=== PATIENT | female | born 1940 | race Caucasian/White ===

== ENCOUNTER 2017-12-24 10:24 | Observation (INO) | payer MEDICARE, OTHER ==
[~2017-12-24] VITALS: Ht 160 cm; Wt 83.4 kg
[2017-12-24] VITALS (12 sets, daily range): BP systolic 133–174; BP diastolic 64–87; PULSE 61–87; RESP 16–20; TEMP 96.4–97.3; O2SAT 95–99
[~2017-12-24 10:24] MED LIST: ACYC-1 PO; ALLE24TA PO; BACT800T5 PO; CLON.1 OR; ENAL20TA PO; ESTR0.1D3 TD; FLON0.053; HYDR12.56 PO; LEVO50TA51 PO; METO50TA11 PO; NORV5TAB PO; PACE100T2 PO; PRAZ1 PO; SIMV40 PO; WARF3TAB PO
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
[2017-12-24] MEDS ORDERED: SODIUM CHLORIDE 0.9% FLUSH 10 ML FLUSH IVF PRN (11:15)
[2017-12-24 11:19] LABS: AUTOMATED NEUTROPHIL # 4.1 TH/MM3 (1.8-7.7); BASOPHIL # 0.2 TH/MM3 (0-0.2); BASOPHIL % 3.6 % (0.0-2.0); EOSINOPHIL # 0.2 TH/MM3 (0-0.4); EOSINOPHIL % 2.6 % (0.0-4.0); HEMATOCRIT 38.6 % (35.0-46.0); HEMOGLOBIN 13.2 GM/DL (11.6-15.3); LYMPH % 21.8 % (9.0-44.0); LYMPHOCYTE # 1.4 TH/MM3 (1.0-4.8); MEAN CELL VOLUME 91.1 FL (80.0-100.0); MEAN CORPUSCULAR HEMOGLOBIN 31.1 PG (27.0-34.0); MEAN CORPUSCULAR HGB CONC 34.1 % (32.0-36.0); MEAN PLATELET VOLUME 8.8 FL (7.0-11.0); MONO % 7.7 % (0.0-8.0); MONOCYTE # 0.5 TH/MM3 (0-0.9); NEUT % 64.3 % (16.0-70.0); PLATELET COUNT 297 TH/MM3 (150-450); RED BLOOD COUNT 4.24 MIL/MM3 (4.00-5.30); RED CELL DISTRIBUTION WIDTH 14.3 % (11.6-17.2); WHITE BLOOD COUNT 6.4 TH/MM3 (4.0-11.0)
--- NOTE | 2017-12-24 11:28 | RADRPT ---
EXAM DATE/TIME: 12/24/2017 11:11 [place] COMPARISON: No previous studies available for comparison. INDICATIONS : Syncope, dizziness, irregular heart rate MEDICAL HISTORY : Hypertension. a fib SURGICAL HISTORY : None. ENCOUNTER: Initial ACUITY: 1 day PAIN SCORE: 0/10 LOCATION: Bilateral chest FINDINGS: Cardiomegaly. No consolidation or effusion. Mild interstitial prominence. Osseous structures are inta ct. CONCLUSION: Mild interstitial prominence. Javi Ferris MD on December 24, 2017 at 11:25 Board Certified Radiologist. This report was verified electronically.
[2017-12-24 11:32] LABS: CHLORIDE 103 MEQ/L (98-107); SODIUM (NA) 137 MEQ/L (136-145)
[2017-12-24 11:35] LABS: ALBUMIN 3.5 GM/DL (3.4-5.0); BICARBONATE 28.6 MEQ/L (21.0-32.0); CALCIUM 9.5 MG/DL (8.5-10.1)
[2017-12-24 11:36] LABS: BLOOD UREA NITROGEN 19 MG/DL (7-18); GLUCOSE,RANDOM 123 MG/DL (74-106); INTERNATIONAL NORMALIZED RATIO 3.4 RATIO; MAGNESIUM 1.9 MG/DL (1.5-2.5); PROTHROMBIN TIME - PATIENT 33.9 SEC (9.8-11.6)
[2017-12-24 11:39] LABS: ALT (GPT) 20 U/L (10-53); AST (GOT) 19 U/L (15-37); GLOMERULAR FILTRATION RATE 48 ML/MIN (>89)
[2017-12-24 11:40] LABS: TOTAL BILIRUBIN ADULT 0.5 MG/DL (0.2-1.0); TOTAL PROTEIN 7.5 GM/DL (6.4-8.2)
[2017-12-24 11:41] LABS: ALKALINE PHOSPHATASE 69 U/L (45-117)
[2017-12-24 11:44] LABS: TROPONIN I LESS THAN 0.02 NG/ML (0.02-0.05)
[2017-12-24] MEDS ORDERED: ONDANSETRON HCL 4 MG/2 ML VIAL IV PUSH ONE (12:15)
[2017-12-24] MEDS ORDERED: SODIUM CHLOR 0.9% 1000 ML INJ 1,000 ML IV ONE (12:15)
--- NOTE | 2017-12-24 12:57 | HHI.HP ---
[facility] Service [facility] Primary Care Physician Everton Hilario M.D. Admission Diagnosis Syncope Diagnoses: Chief Complaint: lightheadedness/passing out Travel History International Travel<30 Days: No Contact w/Intl Traveler <30 Da: No Traveled to Known Affected Are: No History of Present Illness 77-year-old white female being admitted for syncope. Patient was in her usual state of health until earlier today sometime after eating a meal at a table when she got up and felt lightheaded. So she made her way slowly towards another chair/couch and sat down. She does remember losing consciousness and being awoken by her . says that he saw her slouched over sideways while in her sitting chair and thought that she looked like she was sleeping. He then woke her up and she did not appear disoriented or confused. Patient denies biting her tongue or urinating upon herself. denies seeing any diffuse bodily tremors suggestive of seizure-like activity. Patient denies having any chest pain or shortness of breath surrounding the incident. In the emergency department chest x-ray was performed which I independently reviewed which shows very mild diffuse interstitial prominence which could be suggestive of very mild pulmonary edema. Independently reviewed the EKG and I also see A. fib with no RVR. Review of Systems Except as stated in HPI: all other systems reviewed are Neg Past Family Social History Past Medical History Atrial fibrillation Neurogenic syncope Allergies: Coded Allergies: doxycycline (Unverified Allergy, Unknown, 12/24/17) minocycline (Unverified Allergy, Unknown, 12/24/17) tigecycline (Unverified Allergy, Unknown, 12/24/17) Family History Heart disease in family Social History Denies smoking, denies drinking Physical Exam Vital Signs Vital Signs Date Time Temp Pulse Resp B/P (MAP) Pulse Ox O2 Delivery O2 Flow Rate FiO2 12/24/17 12:05 72 18 140/80 (100) 97 Room Air 12/24/17 11:17 97 Room Air 12/24/17 11:13 97 Room Air 12/24/17 10:32 97.3 61 16 146/83 (104) 97 Physical Exam VS: afebrile GENERAL: Lying in bed, awake, alert, no acute distress SKIN: Warm and dry. EYES: Pupils equal and round. No scleral icterus. No injection or drainage. ENT: No nasal bleeding or discharge. Mucous membranes pink and moist. CARDIOVASCULAR: Regular rate and rhythm. no murmurs RESPIRATORY: No accessory muscle use. Clear to auscultation. Breath sounds equal bilaterally. GASTROINTESTINAL: Abdomen soft, non-tender, nondistended. Extremities: No clubbing, cyanosis, or edema. No obvious deformities. MUSCULOSKELETAL: grossly intact ROM with 5/5 strength in upper and lower extremities proximally; adequate muscle bulk and tone for age and habitus NEUROLOGICAL: Awake and alert. No obvious cranial nerve deficits. No facial droop nor slurred speech noted. Patellar reflexes are 5 out of 5 bilaterally PSYCHIATRIC: Appropriate mood and affect; insight and judgment normal. Laboratory Laboratory Tests Test 12/24/17 11:10 White Blood Count 6.4 Red Blood Count 4.24 Hemoglobin 13.2 Hematocrit 38.6 Mean Corpuscular Volume 91.1 Mean Corpuscular Hemoglobin 31.1 Mean Corpuscular Hemoglobin Concent 34.1 Red Cell Distribution Width 14.3 Platelet Count 297 Mean Platelet Volume 8.8 Neutrophils (%) (Auto) 64.3 Lymphocytes (%) (Auto) 21.8 Monocytes (%) (Auto) 7.7 Eosinophils (%) (Auto) 2.6 Basophils (%) (Auto) 3.6 Neutrophils # (Auto) 4.1 Lymphocytes # (Auto) 1.4 Monocytes # (Auto) 0.5 Eosinophils # (Auto) 0.2 Basophils # (Auto) 0.2 CBC Comment DIFF FINAL Differential Comment Prothrombin Time 33.9 Prothromb Time International Ratio 3.4 Activated Partial Thromboplast Time 37.8 Blood Urea Nitrogen 19 Creatinine 1.10 Random Glucose 123 Total Protein 7.5 Albumin 3.5 Calcium Level 9.5 Magnesium Level 1.9 Alkaline Phosphatase 69 Aspartate Amino Transf (AST/SGOT) 19 Alanine Aminotransferase (ALT/SGPT) 20 Total Bilirubin 0.5 Sodium Level 137 Potassium Level 4.7 Chloride Level 103 Carbon Dioxide Level 28.6 Anion Gap 5 Estimat Glomerular Filtration Rate 48 Total Creatine Kinase 69 Troponin I LESS THAN 0.02 Result Diagram: 12/24/17 1110 12/24/17 1110 Imaging Last Impressions Chest X-Ray 12/24/17 1102 Signed Impressions: Service Date/Time: Sunday, December 24, 2017 11:11 - CONCLUSION: Mild interstitial prominence. MD Marcy Limon VTE Risk Assessment Marcy VTE Risk Assessment: Mod/High Risk (score >= 2) Ilyarini Risk Assessment Model Point Value = 1 Point Value = 2 Point Value = 3 Point Value = 5 Age 41-60 Minor surgery BMI > 25 kg/m2 Swollen legs Varicose veins or History of unexplained or recurrent spontaneous Oral contraceptives or hormone replacement Sepsis (< 1 month) Serious lung disease, including pneumonia (< 1 month) Abnormal pulmonary function Acute myocardial infarction Congestive heart failure (< 1 month) History of inflammatory bowel disease Medical patient at bed rest Age 61-74 Arthroscopic surgery Major open surgery (> 45 min) Laparoscopic surgery (> 45 min) Malignancy Confined to bed (> 72 hours) Immobilizing plaster cast Central venous access Age >= 75 History of VTE Family history of VTE Factor V Leiden Prothrombin [id number] Lupus anticoagulant Anticardiolipin antibodies Elevated serum homocysteine Heparin-induced thrombocytopenia Other congenital or acquired thrombophilia Stroke (< 1 month) Elective arthroplasty Hip, pelvis, or leg fracture Acute spinal cord injury (< 1 month) Prophylaxis Regimen Total Risk Factor Score Risk Level Prophylaxis Regimen 0-1 Low Early ambulation 2 Moderate Order ONE of the following: *Sequential Compression Device (SCD) *Heparin 5000 units SQ BID 3-4 Higher Order ONE of the following medications: *Heparin 5000 units SQ TID *Enoxaparin/Lovenox 40 mg SQ daily (WT < 150 kg, CrCl > 30 mL/min) *Enoxaparin/Lovenox 30 mg SQ daily (WT < 150 kg, CrCl > 10-29 mL/min) *Enoxaparin/Lovenox 30 mg SQ BID (WT < 150 kg, CrCl > 30 mL/min) AND/OR *Sequential Compression Device (SCD) 5 or more Highest Order ONE of the following medications: *Heparin 5000 units SQ TID (Preferred with Epidurals) *Enoxaparin/Lovenox 40 mg SQ daily (WT < 150 kg, CrCl > 30 mL/min) *Enoxaparin/Lovenox 30 mg SQ daily (WT < 150 kg, CrCl > 10-29 mL/min) *Enoxaparin/Lovenox 30 mg SQ BID (WT < 150 kg, CrCl > 30 mL/min) AND *Sequential Compression Device (SCD) Assessment and Plan Assessment and Plan 77-year-old white female admitted for syncope Syncope -Likely cardiogenic given orthostatic nature with a history -Ordering orthostatic vital signs, ordering normal saline bolus, recheck orthostatic vital signs -Checking magnesium and phosphorus levels as well as TSH -Trend cardiac enzymes although acute occlusive coronary artery disease is not of concern at this time -Placed on telemetry, Place Holter monitor upon discharge -May be worth getting EEG as an outpatient cardiomegaly - suspect cardiomyopathy - order echo for outpatient afib -RVR SCDs Dawood Blanchard MD Dec 24, 2017 12:57
[2017-12-24] MEDS ORDERED: AMBI10TA PO (13:51)
[2017-12-24] MEDS ORDERED: LEVO75TA43 PO (13:51)
[2017-12-24] MEDS ORDERED: WARF-58 PO (13:51)
[2017-12-24] MEDS ORDERED: LISI-515 PO (13:51)
[2017-12-24] MEDS ORDERED: CALC1TAB12 PO (13:51)
[2017-12-24] MEDS ORDERED: FLUT50SP EACH NARE (13:51)
[2017-12-24] MEDS ORDERED: CHOL5000 PO (13:51)
[2017-12-24] MEDS ORDERED: AMLO5 PO (13:51)
[2017-12-24] MEDS ORDERED: FEXO1TAB97 PO (13:51)
[2017-12-24] MEDS ORDERED: FLAR0.1S EACH EYE (13:51)
[2017-12-24] MEDS ORDERED: PRAZ1CAP PO (13:51)
[2017-12-24] MEDS ORDERED: ZOCO40TA PO (13:51)
[2017-12-24] MEDS ORDERED: AMIO0.1T PO (13:51)
[2017-12-24] MEDS ORDERED: METO1TAB43 PO (13:51)
[2017-12-24 13:54] LABS: BILIRUBIN, URINE NEG (NEG); BLOOD, URINE NEG (NEG); GLUCOSE,URINE NEG (NEG); KETONE, URINE NEG (NEG); NITRITE,URINE NEG (NEG); PH, URINE 7.5 (5.0-8.5); URINE COLOR YELLOW (YELLW/STRAW); URINE LEUKOCYTE ESTERASE TRACE (NEG)
[2017-12-24 13:58] LABS: RBC, URINE 0-3 /hpf (0-3); SQUAMOUS EPITHELIAL CELL URINE 0-5 /hpf (0-5); WBC, URINE 0-2 /hpf (0-5)
--- NOTE | 2017-12-24 14:01 | EKG ---
Date Performed: 12/24/2017 Time Performed: 11:23:40 PTAGE: 77 years EKG: ATRIAL FIBRILLATION LOW QRS VOLTAGE IN PRECORDIAL LEADS NONSPECIFIC T-WAVE ABNORMALITY ABNO RMAL ECG PREVIOUS TRACING : 03/08/2013 18.06 Compared to previous tracing, Afib better controlled DOCTOR: Sandro Hopkins Interpretating Date/Time 12/24/2017 14:00:07
[2017-12-24 14:04] LABS: PHOSPHORUS 3.7 MG/DL (2.5-4.9)
--- NOTE | 2017-12-24 16:14 | HHI.DCPOC ---
Discharge Care Plan Diagnosis: (1) Syncope (2) Nausea Additional Problems DO NOT DRIVE UNTIL SEEN BY PCP. Avoiding large and high carbohydrate meals to minimize postprandial hyoptension. Goals to Promote Your Health * To prevent worsening of your condition and complications * To maintain your health at the optimal level Directions to Meet Your Goals Take your medications as prescribed Follow your dietary instruction Follow activity as directed Keep your appointments as scheduled Take your immunizations and boosters as scheduled If your symptoms worsen call your PCP, if no PCP go to Urgent Care Center or Emergency Room Smoking is Dangerous to Your Health. Avoid second hand smoke Call the 24-hour hour crisis hotline for domestic abuse at Dawood Blanchard MD Dec 24, 2017 16:14
--- NOTE | 2017-12-24 19:21 | MG ---
cc: Micheal Dean MD, PhD TEST NUMBER: [id number]. TECHNIQUE: A 17-channel EEG. DESCRIPTION: The background rhythm reveals symmetrical alpha rhythm. Frequency is 8-9 Hz, amplitude 10-20 microvolts. There is fairly prominent muscle artifact. There are no lateralizing features identified. There are no epileptiform features seen. Photic stimulation does result in a fairly well-developed driving response. INTERPRETATION: This is a normal electroencephalogram. Micheal Dean MD, PhD [place] , 07:08 PM , 07:21 PM
--- NOTE | 2017-12-26 16:41 | HM ---
Date Performed: 12/24/2017 Time Performed: 17:28:00 HOOKUP DATE: 12/24/17 05:28:00 PM Sun ANALYSIS START TIME: 12/24/2017 5:33:00 PM ANALYSIS END TIME: 12/25/2017 5:05:05 PM PATIENT AGE: 77 PATIENT HEIGHT PATIENT WEIGHT DRUG LIST PATIENT DIAGNOSIS: SYNCOPE TEST NARRATIVE: The patient's average heart rate was 83 BPM. Heart rates greater than 120 B PM were noted < 1% of the time. No episodes of bradycardia were noted. No pauses exceeding 2.0 s econds were noted. 2617 ventricular ectopics, which represented 2% of the total beat count, were noted. The highest ventricular ectopic frequency occurred from 12:00 PM to 01:00 PM Mon. During thi s time 195 VE(s) occurred. Ventricular ectopics were observed as 2595 isolated beat(s) and as 11 cou plet(s). No runs were noted. Some of the ventricular beats occurred in bigeminal cycles. No sup raventricular ectopics were noted. No episodes of ST depression (defined as -1.0 mm or more) were noted in channel 1. No episodes of ST depression (defined as -1.0 mm or more) were noted in channel 2. No episodes of ST depression (defined as -1.0 mm or more) were noted in channel 3. TEST INTERPRETATION: No symptoms are noted and no significant pauses are present. The underlying rhythm is atrial flutter with average rate 83 bpm and range of 57 to 125 bpm. Occasional premature v entricular contractions are seen with occasional ventricular couplets. Signed by : Saw Chavez
== END 2017-12-24 21:55 | disposition home or self-care (01) ==
LOC: PHED 10:24 → PHEDA 12:28 → PH3A 16:02
PROVIDERS: ADMIT Hospitalist; ATTEND Hospitalist
DX: R55 Syncope and collapse (principal); R11.0 Nausea; I48.91 Unspecified atrial fibrillation; I11.9 Hypertensive heart disease without heart failure; I51.7 Cardiomegaly; E78.00 Pure hypercholesterolemia, unspecified; I49.3 Ventricular premature depolarization; I48.92 Unspecified atrial flutter; Z79.01 Long term (current) use of anticoagulants
CPT/HCPCS: 71045; 80053; 81001; 82550; 83735; 83880; 84100; 84443; 84484; 85025; 85610; 85730; 93005; 93225; 93226; 95819; 96361; 96374; 99285; G0378; J2405; J7030